=== PATIENT | female | born 1940 | race Caucasian/White ===

== ENCOUNTER 2023-12-29 07:53 | Day surgery (SDC) | payer OTHER ==
[2023-12-29] MEDS ORDERED: CEFOXITIN SODIUM 1 GM/VIAL ONE (08:07)
[2023-12-29] MEDS ORDERED: Ringers Lactate 1,000 ML IV ONE (08:07)
[2023-12-29] MEDS ORDERED: propofoL 200 MG/20 ML VIAL IV ONE (08:15)
[2023-12-29] MEDS ORDERED: ROCURONIUM 50 MG/5 ML VIAL IV ONE (08:15)
[2023-12-29] MEDS ORDERED: FENTANYL CITR 100 MCG/2 ML ONE (08:15)
[2023-12-29] MEDS ORDERED: LIDOCAINE 2% MPF 5 ML VIAL ONE (08:15)
[2023-12-29] MEDS ORDERED: ONDANSETRON 4 MG/2 ML VIAL ONE (08:15)
[2023-12-29 08:18] LABS: Absolute Eosinophils 0.1 K/uL (0-0.5); Absolute Lymphocytes (CBC) 1.3 K/uL (0.7-4.9); Absolute Monocytes 0.5 K/uL (0.1-1.3); Absolute Neutrophil 2.5 K/uL (1.8-8.0); Basophils % 1.1 % (0-1.3); Eosinophils % 1.9 % (0-4.4); Hematocrit 36.5 % (36.0-45.0); Hemoglobin 12.3 g/dL (12.0-15.0); Lymphocytes % 29.4 % (15.3-44.8); MCH 31.1 pg (27.0-35.0); MCHC 33.7 g/dL (32.0-36.0); MPV 6.6 fL (7.6-11.3); Neutrophils % 56.6 % (41.7-73.7); Nucleated Red Blood Cells % 0.2 % (0-0); Platelets 255 thou/uL (152-406); RBC Red Blood Cell Count 3.97 M/uL (3.86-4.86); Red Cell Distribution Width 13.6 % (12.1-15.2)
[2023-12-29] MEDS ORDERED: SUGAMMADEX SODIUM 200 MG/2 ML VIAL IV ONE (08:20)
[2023-12-29] MEDS ORDERED: SUCCINYLCHOLINE 20 MG/ML (10 ML) IV ONE (08:20)
[2023-12-29 08:38] LABS: Albumin 3.4 g/dL (3.4-5.0); Anion Gap 8.5 mEq/L (5.0-15.0); Bilirubin Direct 0.2 mg/dL (0-0.2); Bilirubin Indirect, Calculated 0.3 mg/dL (0.2-0.8); Bilirubin Total 0.5 mg/dL (0.2-1.0); Globulin 3.5 g/dL (2.3-3.5); Potassium 4.5 mEq/L (3.5-5.1); Protein, Total 6.9 g/dL (6.4-8.2)
[2023-12-29] MEDS ORDERED: EPHEDRINE SULF 50 MG/ML VIAL ONE (08:55)
[2023-12-29] MEDS ORDERED: dexAMETHasone 10 MG/ML VIAL ONE (09:02)
--- NOTE | 2023-12-29 09:40 | P.BOP ---
Preoperative diagnosis: symptomatic cholelithiasis, cholecystitis, biliary dyskinesia, RUQ abd pain Postoperative diagnosis: same Primary procedure: Laparoscopic cholecystectomy Secondary procedure: lysis of adhesions Estimated blood loss: <10cc Specimen: gb Findings: as above, multiple intrabdominal adhesions Anesthesia: General Complications: None Transferred to: Recovery Room Condition: Good
--- NOTE | 2023-12-29 09:57 | RAD REPORT ---
EXAM DESCRIPTION: RAD - Chest Pa And Lat (2 Views) - 12/29/2023 8:42 am CLINICAL HISTORY: preprocedure screening Chest pain. COMPARISON: No comparisons TECHNIQUE: PA and lateral views of the chest were obtained. FINDINGS: The lungs are hyperexpanded compatible with COPD. The heart is upper limit of normal in si ze. No fracture or aggressive bony process. IMPRESSION: COPD without acute process identified. The USPSTF recommends annual screening for lung cancer with low-dose CT (LDCT) in adults aged 50 to 8 0 years who have a 20 pack-year smoking history and currently smoke or have quit within the past 15 y ears.
[2023-12-29 12:00] VITALS: BP 134/52; TEMP 96.5; O2SAT 100
--- NOTE | 2023-12-30 16:26 | EKG ---
Test Date: 2023-12-29 Test Time: 08:04:07 Tapeman: TESSY MEASUREMENT RESULTS: Intervals: Rate: 64 HI: 182 QRSD: 66 QT: 434 QTc: 447 Kistler: P: 51 HI: 182 QRS: -14 T: 18 INTERPRETIVE STATEMENTS: Sinus rhythm with premature atrial complexes Low voltage QRS Septal infarct, age undetermined Abnormal ECG No previous ECG available for comparison Electronically Signed On 12-30-23 16:22:40 CDT by Gurinder Roy
--- NOTE | 2024-01-04 05:09 | DS ---
Date of Discharge: 12/29/2023 Diagnoses: Symptomatic cholelithiasis cholecystitis, biliary dyskinesia, right upper quadrant abdomi nal pain, intraabdominal adhesions. Procedure: Laparoscopic cholecystectomy, laparoscopic lysis of adhesions. Condition: Stable. Disposition: Home. Activity: As tolerated. No heavy lifting. Follow up in my office in 1 week. Call for appointment [phone]. Keep area dry for 48 hours and then may shower. Keep surgical area intact 48 hours. SHEILA/DEV Voice ID: [id number] Report ID: [id number]
--- NOTE | 2024-01-04 05:45 | OP ---
Surgeon: Loco Haas MD Preoperative Diagnoses: Symptomatic cholelithiasis, cholecystitis, biliary dyskinesia, right upper q uadrant abdominal pain. Postoperative Diagnoses: Symptomatic cholelithiasis, cholecystitis, biliary dyskinesia, right upper quadrant abdominal pain. Procedures: Laparoscopic cholecystectomy, laparoscopic lysis of adhesions. Estimated Blood Loss: Less than 10 cc. Specimen: Gallbladder. Findings: Multiple intraabdominal adhesions plus inflamed gallbladder. Anesthesia: General plus local. Indications: This is the case of an 83-year-old patient, who comes to us with recurrent epigastric r ight upper quadrant pain radiating to the back associated with nausea, vomiting, diagnosed with known symptomatic cholelithiasis and also cholecystitis and biliary dyskinesia. The benefits, alternative s, and risks of laparoscopic possible open cholecystectomy fully explained, which include, but not li mited to infection, bleeding, damage to adjacent structures, anesthesia complication, choledocholithi asis, bile leak, pancreatitis, SD, and even . She also understands this may not relieve any sym ptoms. She might need more than one surgical intervention. She understood and signed a consent. Procedure In Detail: The patient was brought to the operating room and placed in supine position. A nesthesia was done without complication. Abdominal area was prepped and draped in usual sterile fash ion. Marcaine 0.5% was injected for local anesthetic followed by sharp incision of the skin in the i nfraumbilical region. Incision was carried down to fascia, which was opened under direct vision. Vi cryl #1 placed inside the fascia. Tracy trocar was carefully introduced. Pneumoperitoneum was obta ined. After that, we put the cameras. Then, we noticed the patient has multiple intraabdominal adhe sions not only of the omentum to the gallbladder, but also omentum to the anterior abdominal wall, al so including part of the liver. Some of the liver is also attached anteriorly to the abdominal wall, even though we did not see mass in that region. We noticed those adhesions have to be removed in or leo for us to continue. So with the help of a LigaSure device, we proceeded to continue with lysis o f adhesions carefully. We did complete hemostasis. Then, we were able to liberate the gallbladder, so we put a grasper in the fundus of the gallbladder, another grasper in the infundibulum, retracting the gallbladder in the inferolateral fashion, exposing the triangle of Calot, and obtaining critical view. Cystic duct and cystic artery were clearly isolated, freed circumferentially, and a connectio n between those and the gallbladder were clearly identified. I proceeded to ligate those by using at least 3 clips proximal, 1 clip distal, ligation in middle. Same was done with the cystic artery. N o bile leak. No bleeding. The gallbladder was removed from liver using Bovie cauterizer and removed from abdominal cavity using EndoCatch through the umbilical incision. The area was inspected once a gain. No bile leak. No bleeding. At that moment, I proceeded to remove the trocars under direct vi radha. Deflated the pneumoperitoneum. Closed the fascia with #1 Vicryl, irrigated subcutaneous tissu e, closed that with 3-0 chromic, and then skin approximated. Sponge count and instrument counts baldev ect. The patient tolerated the procedure well. The patient was sent to recovery in stable condition . SHEILA/DEV Voice ID: [id number] Report ID: [id number]
== END 2023-12-29 11:20 | disposition home or self-care (01) ==
LOC: OR 07:53
PROVIDERS: ATTEND Surgery
PROC: 0DNW4ZZ Release Peritoneum, Percutaneous Endoscopic Approach (ICD-10-PCS; 2023-12-29)
PROC: 0FT44ZZ Resection of Gallbladder, Percutaneous Endoscopic Approach (ICD-10-PCS; principal; 2023-12-29 08:45)
DX: K80.10 Calculus of gallbladder with chronic cholecystitis without obstruction (principal); K66.0 Peritoneal adhesions (postprocedural) (postinfection)
CPT/HCPCS: 93005; 85025; 80048; 36415; 80076; 88304; 83690; 71046; 47562; 49329; J2704; J2001; J3010; J1100; J0694; J2405; J7120